=== PATIENT | male | born 1955 | race Caucasian/White ===

== ENCOUNTER 2017-03-11 04:53 | Inpatient (IN) | payer OTHER ==
--- NOTE | ~2017-03-11 | HP ---
History And Physical [address] [id number] [facility] [place]. [address] NAME: NIYAH ANDERSON : 53 STATUS : ADM Star PAT#: [id number] AGE: 62 ADM/REG DATE : 03/11/17 MR#: [id number] REPORT SERV DATE: 03/11/17 DICTATED BY: JOSEPH ESPINOZA III DATE: 03/11/17 REPORT STATUS : Draft TRANSCRIBED BY: MODL DATE: 03/11/17 DATE OF ADMISSION: 03/11/2017 HISTORY OF PRESENT ILLNESS: The patient is a 62-year-old white male, well known to me from a very complicated history that began on 10/11/2014 when he was transferred to [facility] from a [facility] with a very complicated history of ileostomy and open wound that was involved with necrotizing fasciitis. He had extensive surgery in [place], 09/24/2014, and was told that he had a small-bowel obstruction and this was operated on and corrected. Apparently, there was anastomotic leak or bile leak according to the patient's history that was recognized 10 days after the patient's surgery and he was taken back to surgery, re-explored, and washed out, and required an ileostomy and open wound management. The patient's wound had opened widely for a few days. The patient was sent home to have a wound VAC instituted on a diet to be followed up. He was transferred here on his own request because of increasing abdominal pain, fever, chills, cramping, and continued ileostomy output even though he was not able to eat. The patient has small sections of the bowel removed at time the ileostomy was placed according to the history that was described as a temporary ostomy. He has had a poor appetite prior to that admission with extensive wound dehiscence, much drainage, and was in distress. PAST MEDICAL HISTORY: COPD, coronary artery disease followed by Dr. Gonzales, hypertension, history of diabetes, some type of stroke event in the remote past, gastroesophageal reflux disease, peripheral artery disease with stent placements in the past, and lumbar stenosis. He had a cholecystectomy and appendectomy many years ago and the bowel resection at the most 08/2014 timeframe. The patient is allergic to penicillin and potassium chloride by mouth. He was on Plavix as well as a number of other medications at that time. The assessment at that time was that he had wound dehiscence with healing by secondary intention plan, but with gas bubbles and purulent fluid in that area and reported fluid in the area of the dome of the liver with gas bubbles. It was clear that he must have some type of intraperitoneal process going on. The patient was admitted, stabilized at that time, and underwent a number of operations during the process of his admission. The patient underwent a number of operations, which will be listed as above. On 10/16, the patient underwent a debridement and clean up of tissues around the area of the open wound and ileostomy. On 10/31, the patient underwent a debridement of the right lower abdominal quadrant with revision of the right lower quadrant ileostomy and skin approximation with wound VAC applied. On 12/19/2014, the patient again went to the operating room for debridement, Z-Y plasties, and freshening up around the area of the ileostomy with the abdominoplasty and debridement carried out under general anesthetic. On 01/29/2015, the patient was again taken to the operating room, where he had debridement of the abdominal wall with development of flaps, abdominoplasty, and revision of the colostomy, skin level ileostomy recreation. The patient was after that time felt to be so complicated that he needed more tertiary care from a physician who was doing specific tunnel procedures to correct these processes at [facility]. He was transferred to Dr. Neptali Ellis's service at [place] after he had consulted at this hospital and was [facility] [address] [id number] NAME: NIYAH ANDERSON : 53 STATUS : ADM Star PAT#: [id number] AGE: 62 ADM/REG DATE : 03/11/17 MR#: [id number] REPORT SERV DATE: 03/11/17 DICTATED BY: JOSEPH ESPINOZA III DATE: 03/11/17 REPORT STATUS : Draft TRANSCRIBED BY: JAIDA DATE: 03/11/17 managed at that hospital with advanced treatment and eventual reconnection of his alimentary canal. Since that time, the patient has been back in the hospital very infrequently with his last admission being 11/17/2014 primarily for acute kidney injury, secondary dehydration, hyperkalemia, and transaminase concern, in large concern for elevation and worsening of abdominal pain and leukocytosis at that time. The patient was seen by Dr. Pedraza in my absence at that time and apparently resolved pretty nicely from the process without surgical intervention. He has been followed in the wound clinic after that for his continued wound management, which has completely resolved at this time. The patient has otherwise been doing quite nicely at home on a diet, very little pain, and no problems with tolerating diet. He has been having mostly liquid, but stable bowel movement activities at home. He recently in the last two days discovered that he was having abdominal pain more in the right lower quadrant than elsewhere and some nausea and vomiting with paucity of bowel movements. He came to the emergency room early this morning and was evaluated, CT scan showing small-bowel obstruction in the right lower quadrant with a partial small-bowel obstruction initially read and high-grade obstruction read by Dr. Sandoval in this hospital over-reading the initial interpretation. CT scans were reviewed and show considerable activity in the right lower quadrant, which is where the patient's most activities have been with surgery, reconnection, and wound issues. The patient now has NG tube with fairly high output and is feeling a little better on a SAP BW ARCHITECT pump. He is alert and oriented and a fairly good historian. FAMILY HISTORY: Noncontributory. SOCIAL HISTORY: He has been a smoker in the past, but now only uses an electric cigarette, which he says he does not put any nicotine in. He denies significant alcohol intake. He is on no pain medicines chronically at home. REVIEW OF SYSTEMS: Stable weight. Good function overall. PHYSICAL EXAMINATION: GENERAL: The patient is a moderately obese, well-developed white male, in no acute distress. NG tube in place with significant output. HEENT: Showed no lateralization. NECK: Supple without bruit. CHEST: Clear anterior to posterior. HEART: Regular rate and rhythm without thrill, bruit, or murmur. ABDOMEN: Soft with multiple scars in the lower abdomen especially in the right lower quadrant with significant tenderness in the right lower quadrant with no true rebound. He had active bowel sounds and no audible bruits. EXTREMITIES: Grossly anatomic and relatively normal. RECTAL: Exam showed no stool obstruction and his prostate was 2+, smooth, enlarged. IMPRESSION: The patient has a small-bowel obstruction probably related to adhesions. He also has a history of significant hypertension, which has required multiple medications. He History And Physical [id number] [facility] [place]. [address] NAME: NIYAH ANDERSON : 53 STATUS : ADM Star PAT#: [id number] AGE: 62 ADM/REG DATE : 03/11/17 MR#: [id number] REPORT SERV DATE: 03/11/17 DICTATED BY: JOSEPH ESPINOZA III DATE: 03/11/17 REPORT STATUS : Draft TRANSCRIBED BY: JAIDA DATE: 03/11/[address] 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 Gonzales, which is little over a year ago. At that time, the patient was noted to have a fairly significant coronary findings of some narrowing, but no crucial narrowing and no angioplasty or stenting was done at that time. The report is reviewed. The patient's diabetes has not been problematic and he says his hemoglobin A1cs have been normal the last few determinations by his PCP, whom he has not really seen recently because he has been doing so well. Impression, the patient has small- bowel obstruction secondary to adhesions and treatment will be GI rest, NG decompression, Gastrografin enema, decompression with enemas in preparation, and possible surgery if he does not resolve. I have explained to the patient and his , surgery on him will be extremely tenuous due to his past history, fraught with potential complications, and high risk for morbidity and mortality. ELIZABETH/JAIDA Joseph Espinoza III, M.D. / [id number] CC: Joseph Espinoza III, M.D.
--- NOTE | ~2017-03-11 | OP ---
Record Of Operation [facility] [address] [place]. 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 He had an ileostomy performed that was very problematic and eventually had a closure and reanastomosis for alimentary canal continuity a year and a half or so ago. The patient's abdomen had been treated with multiple treatments, skin flaps, and wound VAC therapy for very complex wound situation over the course of his recovery. Anticipation of extensive adhesion and fusion of the bowel to the surrounding tissues is anticipated. The patient's surgery was preceded by a time-out with discussion of the patient's allergies as well as his planned procedure and instrumentation and materials needed for his operation. He is allergic to penicillin and oral potassium chloride. He had been recommended to have this surgery a day prior, but refused, but was at last willing to have surgery today due to his progressive pain. PREOPERATIVE DIAGNOSIS: Complete small bowel obstruction with progression and failure to respond to conservative decompression and GI rest. POSTOPERATIVE DIAGNOSIS: Complete small bowel obstruction with progression and failure to respond to conservative decompression and GI rest with dilation of the bowel and a "frozen abdomen" with no real discernible abdominal cavity due to extensive adhesions and fusion of the surrounding tissues. PROCEDURE: The procedure on the patient is an exploratory laparotomy with extensive lysis of adhesions and adhesion enterolysis requiring four and a half to five hours of dissection time to identify the area of question. The patient had the resection of an obstructed area of small bowel that included the obvious twisted, contracted obstruction point with dilated bowel approximately 35 to 40 cm involved. This was followed by a hand-sewn end-to-end jejunoileostomy reconnection for alimentary canal continuity. SURGEON: Joseph Espinoza M.D. BOOKING OFFICER: Vaishnavi Prater. ANESTHESIA: General endotracheal anesthesia with placement of subclavian line and at the end of the case, an A-line was also placed. PATHOLOGIC FINDINGS: Dense adhesions requiring four to five hours of dissection time with adhesion enterolysis and dissection of the bowel involved primarily in the right lower quadrant and right midabdomen. The area was found where there was complete obstruction at the level near the junction of the distal jejunum and proximal ileum presumably, but very difficult to say for sure due to the complexity. We did know from refluxing the small intestine two days prior, there was a fair amount of normal small bowel on the reflux through the ileocecal valve, which was incompetent and that bowel was not obstructed for at least 60 to 70 cm. Also noted was dilated and necrotic bowel at the level of the Record Of Operation [address] [address] NAME: NIYAH ANDERSON : 53 STATUS : ADM Star PAT#: [id number] AGE: 62 ADM/REG DATE : 03/11/17 MR#: [id number] REPORT SERV DATE: 03/13/17 DICTATED BY: JOSEPH ESPINOZA III DATE: 03/13/17 REPORT STATUS : Draft TRANSCRIBED BY: JAIDA DATE: 03/13/17 obstruction and proximal to it. The patient had a "frozen abdomen" due to extensive adhesions making an actual abdominal cavity nonexistent on the right side of the abdomen. There was noted to have fusion of the small bowel to the abdominal wall in multiple places causing several enterotomies, which were resected and the bowel resection necessary for the repair. There was minimal contamination despite this process, but clearly, the patient had obstruction with food materials that were present including recognizable corn and lettuce- type material. The case was assisted by Evicel, which was placed to the anastomosis, which is fibrin glue used to help seal the area of the anastomosis. The abdomen was irrigated with 2 L of Clorpactin solution and a 19-Latvian Elijah-Novoa Saleem drain was placed in the right midabdomen above the transverse incision and sutured in place with 2-0 Prolene draining the area of the pelvis and especially the area around our anastomosis. The incision was a right midabdominal incision, which crossed the midline. ESTIMATED BLOOD LOSS: 200 mL. CRYSTALLOID GIVEN: 3000 mL supplemented by some albumin. CONDITION: Postoperative condition the patient is fair. DESCRIPTION OF PROCEDURE: The procedure went as follows: Time-out was called as in full agreement with the patient and the operating room staff was obtained. The procedure proceeded with the appropriate prepping and draping using Ioban and draping widely. The abdomen was entered by transverse incision above previous transverse incision, which was anticipated to have more potential for fusion and complications. This incision was made hoping that there would be a lesser chance of bowel fusion at this level since it was clearly 8 cm above the previous scar, but we had to make the incision in the area reasonably close to the obstructing site in the right lower quadrant. Upon entering the abdomen, a small incision was made and careful dissection made with a 15 knife blade. The fascia was divided and tissue immediately below the fascia, which should have been peritoneum was indeed peritoneum fused with small bowel. An enterotomy was immediately noted and due to the frozen abdominal situation, the patient's contamination was nil except to the subcu tissue. The enterotomy was controlled, suctioned, and freed up enough to close it with silk sutures for a temporary closure and for prevention of contamination. Long drawn out process of painstaking dissection was achieved using blunt sharp dissection as well as sharp knife dissection with traction and countertraction, and small bites and segments to try and free up the bowel. The area was essentially without a true cavity. We identified the small bowel where the enterotomy initially was made circumferentially and started dissecting distal and proximal to the enterotomy closure site. The process was then continued back and forth, and several other enterotomies were noted during the dissection, which were immediately controlled with [place] clamps and closed with 3-0 Vicryl locking sutures to control contamination potential. The dissection continued on and on until we were able to identify a large piece of small bowel that was dilated 5 to 6 cm and was necrotic, and went down to an area right at the pelvis in the right lower quadrant where there was scar tissue and adhesive process that had a very tiny strictured site where the tissue was essentially solid and the small bowel contents above it were also with identifiable food content. Dissection was carried on up and down over a period of several hours as described and eventually we were able to describe some small bowel in the left midabdomen that we traced Record Of Operation [address] [place]. [address] NAME: NIYAH ANDERSON : 53 STATUS : ADM Star PAT#: [id number] AGE: 62 ADM/REG DATE : 03/11/17 MR#: [id number] REPORT SERV DATE: 03/13/17 DICTATED BY: JOSEPH ESPINOZA III DATE: 03/13/17 REPORT STATUS : Draft TRANSCRIBED BY: MODL DATE: 03/13/17 back where the bowel was less friable and not fused to the surrounding tissues. The bowel was adhesed quite extensively, but not such that it was fused to the surrounding tissues. This bowel was freed up, and the section of the bowel where the dilation had caused necrosis and extreme friability of the bowel was transected proximally with a JOAQUIN 75 and after this was done, the mesentery to the small bowel was controlled with the LigaSure. The dissection was then carried all the way down to the pelvic brim on the right side, where the bowel was fused in an extremely tight strictured area, and the tissue right beyond the stricture was extremely tightly adhered to the pelvic brim. This tissue was freed up as much as possible and was quite cyanotic from the level of the pelvic brim back to the site, where the bowel had been transected. The bowel was opened after it had been removed to assess whether there were any other abnormalities therein. The specimen was then submitted to pathology for permanent analysis. The bowel was divided at the pelvic brim level just distal to the stricture controlling it with a right angle Sherry clamp. After this was done, the Sherry clamp was opened and the bowel lumen inspected. The bowel was fairly small in caliber at this level, presumably due to the chronic obstruction above it. The tissues were then assessed and tissue at this level felt to be viable and appropriate for an anastomosis. The tissue of the more proximal small bowel where it had been transected was still very tightly adhered in the left upper quadrant and in the left lower quadrant with dense adhesions. These adhesions were taken down over a period of another 30 minutes to clear up the bowel and mobilize it where it could be brought to the right lower quadrant for anastomotic procedures. After this had been done, some of the mesentery to that bowel had to be mobilized to allow it to come safely and tension free to the level of the right lower quadrant pelvic brim. After this was done, back wall sutures of 3-0 silk were then placed under direct visualization and tied down after their placement of all these silk sutures. A Doyen clamp and was then placed on the proximal end of the bowel and the ends suctioned out to remove any potential contamination in this dilated bowel with continued enteral contents from the obstruction. After this Doyen clamp had been applied, most of the contents of the bowel was then suctioned with a suction device using abdominal wall suction removing as much of the material as possible, but a lot of the solid material had to be removed by ring forceps. After this had been done, draping out to protect the abdominal cavity as such it was from further contamination, this was accomplished cleaning out the bowel. The bowel was then irrigated with saline and suctioned out with no contamination at this process. The sutures that had been placed in the back wall of the distal end of the anastomosis were then placed in the back wall for the proximal bowel and after they had all been placed under direct visualization, they were tied down with good approximation. After this was done, interrupted 3-0 Vicryl sutures were then placed as full thickness closures suture on the back wall. This was done at very close intervals with a tension-free approximation. The back wall having been completed, the anterior wall was then prepared for closure. The distal bowel was extremely thin, but quite viable with good bleeding. It was so small at this level that an anterior incision had to be made to help correct the disparity in the two lumen sizes. The JOAQUIN closure was opened prior to the back wall full-thickness layer of Vicryl sutures were performed. After this was done, the anterior layer was then closed with interrupted Vicryl sutures 3-0 size. These were all placed under direct visualization and tied down after their placement. The anterior surface was then closed in a second layer with 3-0 Lembert sutures carefully pulling the mucosal tissues over the anastomotic suture line with a tension-free closure at this level. After this was done, a good anastomotic Record Of Operation [address] [address] NAME: NIYAH ANDERSON : 53 STATUS : ADM Star PAT#: [id number] AGE: 62 ADM/REG DATE : 03/11/17 MR#: [id number] REPORT SERV DATE: 03/13/17 DICTATED BY: JOSEPH ESPINOZA III DATE: 03/13/17 REPORT STATUS : Draft TRANSCRIBED BY: JAIDA DATE: 03/13/17 opening of approximately one fingerbreadth or 2 cm was palpable. Evicel was then placed around this suture line. This anastomosis was fixed at the pelvic brim level and was not a mobile portion of the bowel. After this was done, all areas were irrigated with copious amounts of normal saline followed by Clorpactin solution. A protractor was placed in the abdominal wall to assist with the control of pouring in 2 L of Clorpactin solution. The tissues were then gently agitated to try and move the Clorpactin solution around the relatively small cavitary area that was able to be made secondary to the frozen abdomen complex issue. After this was done, the Clorpactin was all suctioned and a drain placed in the right gutter using a 19-Latvian Saleem drain, which was run out a separate stab wound superior to the transverse incision and sutured in with 2-0 Prolene. After this was done, all areas were reinspected. Good control of bleeding was noted and the abdominal wall inspected and prepared for closure. The bowel had been freed up along the edges of the abdominal wall well enough to perform a closure, but prior to closing, we had to free up a little bit more of the abdominal wall doing adhesion enterolysis along the way to make an opening so we could do a good tight closure. The abdomen was closed with #1 PDS as a loop suture and placed at both ends of the incision with full-thickness close interval small bite technique. After this was done, all sutures were placed up with good tension and the two sutures tied together without difficulty. The area was then irrigated in the subcutaneous tissue with Clorpactin solution. Also 120 mL of Clorpactin solution were injected through the Elijah-Novoa drain to further irrigate after the closure. The skin was left open, but the suture at the middle of the incision where the two PDS looped sutures had been tied together were buried with 3-0 Vicryl sutures using 3 or 4 of these sutures to pull the subcutaneous tissue over the knot and tails of the knot. The subcutaneous tissue was then packed with the black sponge material and draping material applied and a wound VAC applied with bridging technique. The wound VAC was set at 125 mmHg continuous mode. Drain sponge was applied using an antibiotic-impregnated sponge around the drain, and the procedure concluded. The patient tolerated the procedure reasonably well, but was kept intubated for a night and registered nurse float pool asked to assist in the patient's management. The patient's prognosis is somewhat guarded due to the extreme adhesive process and tissue, which is extremely friable throughout the abdomen, but especially the two ends of the bowel where they were anastomosed. Friability hopefully is related to the obstructing process of the distal portion and proximally due to the distention from the obstruction causing the bowel graham to be stretched. There was good viability at the two ends of the anastomosis during and after the anastomotic process had been completed. The patient will be sent to the intensive care unit, NG tube in place, drain in place, wound VAC in place, and follow lab with antibiotics using Levaquin and vancomycin as well as Flagyl. This will be continued for least five days. RB/JAIDA Record Of [address] [address] NAME: NIYAH ANDERSON : 53 STATUS : ADM Star PAT#: [id number] AGE: 62 ADM/REG DATE : 03/11/17 MR#: [id number] REPORT SERV DATE: 03/13/17 DICTATED BY: JOSEPH ESPINOZA III DATE: 03/13/17 REPORT STATUS : Draft TRANSCRIBED BY: JAIDA DATE: 03/13/17 Joseph Espinoza III, M.D. / [id number] CC: Joseph Espinoza III, M.D.
--- NOTE | ~2017-03-11 | OP ---
Record Of Operation [facility] [address] [place]. [address] NAME: NIYAH ANDERSON : 53 STATUS : ADM IN PAT#: [id number] AGE: 62 ADM/REG DATE : 03/11/17 MR#: [id number] REPORT SERV DATE: 03/15/17 DICTATED BY: JOSEPH ESPINOZA III DATE: 03/14/17 REPORT STATUS : Draft TRANSCRIBED BY: MODL DATE: 03/14/17 DATE OF PROCEDURE: 03/14/2017 PREOPERATIVE INFORMATION AND DIAGNOSIS: The patient was explored yesterday for a severe bowel obstruction that was extremely advanced at the time of its discovery with many adhesions and fibrotic changes. The patient has actually no true abdominal cavity on the right side especially and there is just an inflammatory ball of bowel that is apparently non obstructed, but so involved in an adhesive inflammatory response that it is impossible to discern the bowel in 90% of the areas. A few areas of bowel are identifiable in this ball of intestine, but the level of which the bowel is, is impossible to discern. The patient has had an anastomosis late yesterday, which we took out a segment of bowel that was obstructed and mobilized, what appeared to be, the jejunum and proximal bowel that led up to the ligament of Treitz more on the left side than the right side and this was dissected out and mobilized enough to do an anastomosis to the end of the strictured portion of the bowel, which just distally was able to be identified and anastomosed. Apparently, the patient developed some type of ischemic process in the anterior aspect of the anastomosis and was leaking bile from the drain which necessitated a re-exploration. The patient has an extremely complex history, which is outlined in the history and physical. PREOPERATIVE DIAGNOSIS: Failure of the previous anastomosis with leak of succus entericus. POSTOPERATIVE DIAGNOSIS: Failure of the previous anastomosis with leak of succus entericus. FINDING: Leak from the anterior surface of the previous jejunoileal anastomosis secondary to ischemia. This was followed by a re-exploration of the abdomen with decompression of succus entericus from the leak from the anastomosis and identification of the site. Further lysis of adhesions were carried out and on-table fluorescein angiography was performed to confirm the ischemia around the anastomotic area and further confirm viability of bowel a few centimeters back on the same ileal piece of bowel that was fused to the urinary bladder and the intestinal bowel mass that was described earlier. After this was done, the patient had a Wood's lamp fluorescein evaluation of the tissue more distally and this was viable with good fluorescein flow noted on the Wood's lamp at the evaluation. Prior to that, the anastomosis area showed virtually no flow on the anterior aspect of the anastomotic area. The fluorescein angiography was followed by an on-table Gastrografin C-arm enteroclysis for evaluation of the level of the small bowel involved and this was done from the level of the ileum all the way to the cecum or colon in the right side of the abdomen. This was followed by reanastomosis of the jejunoileal anastomotic area with free anastomotic confirmation of good vascular flow by Wood's lamp fluorescein evaluation. SURGEON: Joseph Espinoza M.D., FACS. DISTRICT SUPERVISOR: Elda Espinoza RN [facility] Record Of Operation [address] [address] NAME: NIYAH ANDERSON : 53 STATUS : ADM IN [facility]#: [id number] AGE: 62 ADM/REG DATE : 03/11/17 MR#: [id number] REPORT SERV DATE: 03/15/17 DICTATED BY: JOSEPH ESPINOZA III DATE: 03/14/17 REPORT STATUS : Draft TRANSCRIBED BY: MODL DATE: 03/14/17 SPECIMEN REMOVED: Anastomotic tissue which was ischemic. ESTIMATED BLOOD LOSS: 50 mL. COMPLICATION: Anastomotic leak secondary to ischemia. ANESTHESIA: General with endotracheal tube. The ET tube already in place from yesterday's surgery since the patient has not been extubated. DRAIN USED: A 19-Guine[place] Saleem drain. Wound VAC was placed to the subcutaneous tissue of the subcu and skin. Silver sponge was utilized. PROCEDURE IN DETAIL: The patient was prepped and draped in routine fashion under adequate general anesthesia. The area of previous right transverse incision was opened in its entirety removing the previously placed looped #1 PDS sutures. After this had been opened, the abdomen was noted to have a lot of succus entericus therein, mostly bile stain with no food or solid component, only the bile stained fluid was noted. The area of the bile leak was controlled with a [place] clamp temporarily controlling the area of leak. After this was done, the area was re-explored and no other sites for potential leak found. The other bowel proximally looked viable as did the proximal jejunal tissues even near the anastomosis. The tissue on the anterior surface of the distal limb of the anastomosis was cyanotic at the level of the perforation. After this had been decided, fluorescein was injected as 1 vial and Wood's lamp used after four minutes of circulation time. The fluorescein was seen in the 1 cm rim over the anterior surface of the anastomosis region, but good flow was even seen on the posterior aspect. After this was established, the anastomosis was taken down in its entirety and the entire distal end of the ileum was amputated using cautery to remove the ischemic issue back to good viable pink bleeding tissue. After this had been ascertained, we tried to establish that there was no obstruction distally to the anastomosis that would have caused it to fail further. A #36 bougie esophageal dilator attempted to be passed through the distal end, but we were unable to really get it through more than 8 to 10 cm. Using both hands of the dilator it would not progress in the bowel. After this had been ascertained, a Arrieta catheter with a 10 mL bulb was placed in the bowel. The bulb blown up and enteroclysis carried out with Gastrografin using approximately 200 mL a Gastrografin which allowed us to establish that this was indeed the proximal bowel where the anastomosis was being performed and that it communicated all the way to the colon on the right side. There was no evidence of any narrowing or obstruction that were not anatomic. After this had been done, the Arrieta catheter was removed and the amputated the ends of the distal port of the anastomosis were assuredly removed in adequate amount to have good vascularity to the area for reanastomosis. 2-0 silk sutures were then used to place the back wall with seromuscular Lembert sutures. After this was done, interrupted sutures of 2-0 Vicryl were placed at close intervals as a full-thickness closure. After this was completed on the back wall a turn was accomplished Record Of Operation [place] [id number] [place]. [address] NAME: NIYAH ANDERSON : 53 STATUS : ADM IN [facility]#: [id number] AGE: 62 ADM/REG DATE : 03/11/17 MR#: [id number] REPORT SERV DATE: 05/31/17 DICTATED BY: JOSEPH ESPINOZA III DATE: 03/14/17 REPORT STATUS : Draft TRANSCRIBED BY: MODL DATE: 03/14/17 using interrupted 2-0 Vicryl sutures, which were all placed under direct visualization, tied down after placement for a good anastomotic approximation. Lembert sutures of 2-0 silk were then utilized to close the anastomosis imbricating the Vicryl layer. Good opening was palpable and the viability re-evaluated with the Wood's lamp and fluorescein, which was still in the circulation. The wall of the bowel at this level appeared to be extremely viable with good flow and good fluorescein reaction to the entire anastomosis. After this was established, the abdomen was irrigated with copious amounts of normal saline followed by Clorpactin solution. The drain which was still in place was left in place in the right gutter. The abdomen being closed after correct sponge, lap count, instrument count, and needle count. The abdomen was closed with looped #1 PDS on the full-thickness fascial closure which was very difficult to the previously placed mesh and extreme scar reaction in the abdomen from many previous surgeries. After this was done, the abdomen was effectively closed and the subcutaneous tissue then drained with a wound VAC with silver sponge and 125 mmHg constant suction application utilized. After this was done, the drain was secured and a bowel patch placed therein and the drain bulb using the large container was applied. The estimated blood loss 50 mL. The patient tolerated the procedure well. The procedure on the patient was reexploration of the abdomen with decompression of succus entericus, evacuation of succus entericus with identification of an anastomotic leak. This was followed by a lysis of adhesions and amputation of previous anastomosis preceded by a two fluorescein Wood's lamp angiography and followed by a post anastomotic fluorescein Wood's lamp angiography. Also, utilized was an on-table Gastrografin C-arm enteroclysis of the small bowel evaluation to confirm that this was a proximal small bowel with anastomosis that occurred and the bowel was opened all way to the cecum/colon on this evaluation. A reanastomosis with a jejunoileal anastomosis was performed. Anesthesia was general endotracheal tube and the patient was reasonably stable. The 19-Guine[place] Saleem drain was left in position. ELIZABETH/JAIDA Joseph Espinoza III, M.D. / [id number] CC: Joseph Espinoza III, M.D.
--- NOTE | ~2017-03-11 | DS ---
Discharge Summary [place] [id number] [place]. [address] NAME: NIYAH ANDERSON : 53 STATUS : ADM IN [facility]#: [id number] AGE: 62 ADM/REG DATE : 03/11/17 MR#: [id number] REPORT SERV DATE: 03/15/17 DICTATED BY: CHELA TUTTLE DATE: 03/15/17 REPORT STATUS : Draft TRANSCRIBED BY: MODL DATE: 03/15/17 ADMISSION DATE: 03/11/2017 DISCHARGE DATE: 03/15/2017 DATE OF : 03/15/2017 at 1102 hours. This is a 62-year-old patient that Dr. Espinoza admitted with small-bowel obstruction who failed conservative therapy and required surgical intervention. The patient was taken to the operating room on 03/13/2017 and had to go back to the operating room on 03/14/2017 after he developed a bile leak. The patient has a known history of cardiac disease and is followed by Dr. Gonzales. The patient was doing relatively well on the morning of 03/15/2017 and actually was close to possible extubation when at 1041 hours Jordin Styles was called. The patient had just had a bowel movement and went into PEA arrest. CPR was initiated immediately. ACLS protocol was followed, and the patient received epinephrine to start 1 amp of calcium. He was then noted to be in VFib and remained in intermittent VFib throughout the code. He was shocked seven times throughout the code, received a total of 300 mg of amiodarone, 100 mg of IV lidocaine, 8 amps of epinephrine, 1 g of magnesium, and 1 amp of calcium. He also received a fluid bolus. The patient received good quality CPR. Quick-look echocardiogram at several points during the code showed very little contractility and toward the end of the code, no contractility with what was recognized as smoke or recirculating blood in the right ventricle which did not seem to be enlarged. No pericardial effusion was noted. ABG during the code which was venous showed a pH of 7.2, pCO2 of 52, pO2 of 18, bicarb of 22. His initial lab work prior to the code showed a procalcitonin of 1.0. Sodium 143, potassium of 4.1, chloride of 104, bicarb of 30, BUN 7, creatinine 0.88. Magnesium was 2.1. Lactic acid level was 2.8 prior to the code on the morning lab work. This was down from 3.8 on the 03/14/2017. The patient did have an initial complaint of chest pain prior to coding. Despite our best efforts, the patient did not survive the code. The code was initiated at 10:41 a.m. and was called at 11:02 a.m. after there was no response to multiple shocks, epinephrine, lidocaine, and amiodarone, as well as no evidence of contractility on the bedside quick look echo. We then also spent time updating the family and we had a discussion both with the family and Dr. Espinoza. Time was then taken to review the chart and various lab work. So, total time spent between the code and review of the lab work updating the family and discussion with Dr. Whitaker was 51 minutes of critical care time. DICTATED BY: Chela Tuttle M.D. /JAIDA Chela Tuttle M.D. / [id number] Discharge Summary [address] [address] NAME: NIYAH ANDERSON : 53 STATUS : ADM IN [facility]#: [id number] AGE: 62 ADM/REG DATE : 03/11/17 MR#: [id number] REPORT SERV DATE: 03/15/17 DICTATED BY: CHELA TUTTLE DATE: 03/15/17 REPORT STATUS : Draft TRANSCRIBED BY: JAIDA DATE: 03/15/17 CC: Ernesto Espinoza III, M.D. UNKNOWN
--- NOTE | ~2017-03-11 | CN ---
Consultation Report [facility] [address] [facility] [place]. [address] NAME: NIYAH VAN : 53 STATUS : ADM IN [facility]#: [id number] AGE: 62 ADM/REG DATE : 03/11/17 MR#: [id number] REPORT SERV DATE: 03/14/17 DICTATED BY: VAZQUEZ VICTOR DATE: 03/14/17 REPORT STATUS : Draft TRANSCRIBED BY: MODRachelle DATE: 03/14/17 DATE OF CONSULTATION: 03/13/2017 Thank you for the opportunity to consult on this patient. Consultation was performed on 03/13/2017. REASON FOR CONSULTATION: Postoperative care in the ICU with ventilator management. HISTORY OF PRESENT ILLNESS: Mr. Van is an unfortunate 62-year-old man with a very complex extensive medical history. This includes amongst other problems recurrent small bowel obstruction, multiple surgeries, leak, intraabdominal infections, necrotic ileostomy, enterocutaneous fistulae, multiple intraabdominal abscesses, sepsis, effusions, had been on TPN for a while with long wound care, diabetes, esophagitis, and COPD, who came in this time for small bowel obstruction and had complete small bowel obstruction and progression and failure to respond to conservative decompression. He underwent lysis of adhesions in addition to enterolysis requiring 4.5 to 5 hours of dissection time. Because of the extent of the surgery and his complicated history, the patient remained on the ventilator post surgery. He is actually stable. We have checked his imaging postprocedure and those show adequate placement. PAST MEDICAL HISTORY: Leading up to us is as noted above, significant for quite extensive disease with previous necrotizing fasciitis, complications of small bowel obstruction, abdominal surgery, as well as COPD and peripheral vascular disease. SOCIAL HISTORY: Significant for prior tobacco abuse with him having quit in 2011. Occasional alcohol use. REVIEW OF SYSTEMS: Review of 10 systems could not be obtained since the patient is intubated on the ventilator. PHYSICAL EXAMINATION: GENERAL: He is chronically ill appearing. HEENT: Normocephalic and atraumatic. NECK: Supple. No lymphadenopathy. No JVD. CHEST: Symmetric with good expansion bilaterally. LUNGS: Have distant but clear breath sounds. CARDIOVASCULAR: He has S1 and S2, which are regular rate and rhythm. ABDOMEN: Benign, though with diminished bowel sounds. EXTREMITIES: His has no edema, no clubbing, no cyanosis. ASSESSMENT AND PLAN: Respiratory failure. He has postoperative respiratory failure but seems to be stable on the ventilator. ET tube, orogastric tube, and central line are in good position. The patient will remain on supportive care tonight, and we will continue to monitor him with you in the ICU. Consultation Report [facility] [address] [place] [address] NAME: NIYAH VAN : 53 STATUS : ADM IN [facility]#: [id number] AGE: 62 ADM/REG DATE : 03/11/17 MR#: [id number] REPORT SERV DATE: 03/14/17 DICTATED BY: VAZQUEZ VICTOR DATE: 03/14/17 REPORT STATUS : Draft TRANSCRIBED BY: JAIDA DATE: 03/14/17 Please do not hesitate to contact me if I could be of any further assistance. HUGO/JAIDA Vazquez Victor M.D. / [id number] CC: Ernesto Espinoza III, M.D.
[2017-03-11 04:04] LABS: BASOPHILS 0.2 %; BASOPHILS ABSOLUTE 0.02 10/3/uL (0.0-0.16); EOSINOPHILS 1.6 %; EOSINOPHILS ABSOLUTE 0.17 10/3/uL (0.0-0.53); ER CBC TAT 0 Hrs 03 Mins; HEMATOCRIT 48.1 % (40.0-51.0); HEMOGLOBIN 16.8 g/dL (13.6-17.8); IMMATURE GRANULOCYTES 0.3 %; IMMATURE GRANULOCYTES ABSOLUTE 0.03 10/3/uL (0.0-0.11); MEAN CORPUS HGB CONC 34.9 g/dL (32.0-36.0); MEAN CORPUSCULAR HEMOGLOB 29.7 pg (26.0-34.0); MEAN CORPUSCULAR VOLUME 85.1 fL (80-100); MEAN PLATELET VOLUME 10.5 fL (9.2-13.0); MONOCYTES 5.8 %; MONOCYTES ABSOLUTE 0.63 10/3/uL (0.21-1.20); NEUTROPHILS 81.1 %; NEUTROPHILS ABSOLUTE 8.89 10/3/uL (2.02-8.40); PLATELET COUNT 172 10/3/uL (150-400); RED CELL COUNT 5.65 10/6/uL (4.7-6.1); WHITE BLOOD CELLS 10.9 10/3/uL (4.5-10.5)
[2017-03-11 04:05] LABS: MANUAL DIFF NO %
[2017-03-11 04:24] LABS: A/G RATIO 1.1 (0.7-1.9); ALBUMIN 3.8 G/DL (3.5-5.0); CALCIUM, SERUM 9.8 MG/DL (8.5-10.4); CHLORIDE, SERUM 99 MMOL/L (96-112); CO2 (CARBON DIOXIDE) 29 MMOL/L (24-34); CREATININE 0.72 MG/DL (0.70-1.30); GFR AFRICAN AMERICAN 115 ML/MIN (>=60); GFR NON AFRICAN AMERICAN 99 ML/MIN (>=60); GLOBULIN 3.6 G/DL (2.5-4.1); GLUCOSE, SERUM 142 MG/DL (60-99); POTASSIUM, SERUM 3.5 MMOL/L (3.5-5.3); SGPT(ALT) 36 U/L (5-65); SODIUM, SERUM 137 MMOL/L (135-148); TOTAL BILIRUBIN 0.6 MG/DL (0-1.2); TOTAL PROTEIN 7.4 G/DL (6.0-8.5)
[2017-03-11 04:25] LABS: ALKALINE PHOSPHATASE 64 U/L (45-117); BUN (BLOOD UREA NITROGEN) 8 MG/DL (6-23)
[2017-03-11 04:26] LABS: SGOT(AST) 23 U/L (5-40)
[~2017-03-11 04:53] MED LIST: ASA5GR PO; ASAB PO; CREON12000 UNT PO; DULERA 200 MCG/13 GM INH; DURA100 TOP; DURA25 TOP; FESO4 PO; FLORASTOR250 MG PO; FOLIC PO; GLUCOPHAGE1000 MG; GLUCPH PO; IMDUR30 PO; IMDUR60 PO; KLONO1 PO; KLONO5 PO; L40 PO; LACTATED RING1000 ML IV; LACTINEXT PO; LEVAQUIN5T PO; LEVAQUIN750 MG PO; LEVEMFLXPN SC; LEVEMIR SC; LIPITOR80 MG PO; LISINOPRIL40 MG PO; LOP50 PO; MEGACEUDL PO; MONOKET20 PO; MSCONT15 PO; NEUR100 PO; NITROSTAT0.4 MG SL; NORV5 PO; PAX20 PO; PCET PO; PERCOCET1 TA4 PO; PLAVIX PO; PR25 PO; PRILO PO; PRIN20 PO; PRIN5 PO; PROTONIX PO; REQUIP5 PO; SPIRIVA INH; SUCR PO; T PO; TOPXL50 PO; TRANSSCOP TOP; TYLENOL PM PO; VITAMIN D31000 UNIT PO; VITC500 PO; X5 PO; ZESTRIL10 MG PO; ZESTRIL20 MG PO; ZOFRANODT8 PO; [UNRECOGNIZED DRUG - OTHER] PO
[2017-03-11] MEDS ORDERED: PRIN20 PO (05:53)
[2017-03-11] MEDS ORDERED: KLONO1 PO (05:54)
[2017-03-11] MEDS ORDERED: TOPXL100 PO (05:54)
[2017-03-11] MEDS ORDERED: PLAVIX PO (05:55)
[2017-03-11] MEDS ORDERED: IMDUR60 PO (05:55)
[2017-03-11] MEDS ORDERED: ADALAT CC30 MG PO (05:56)
[2017-03-11] MEDS ORDERED: [UNRECOGNIZED DRUG - OTHER] (05:56)
[2017-03-11] MEDS ORDERED: PAX20 PO (05:56)
[2017-03-11] MEDS ORDERED: ISOSORBIDE MONONITRATE (05:57)
[2017-03-12 04:51] LABS: BASOPHILS 0.2 %; BASOPHILS ABSOLUTE 0.02 10/3/uL (0.0-0.16); EOSINOPHILS 2.2 %; EOSINOPHILS ABSOLUTE 0.24 10/3/uL (0.0-0.53); HEMATOCRIT 51.5 % (40.0-51.0); HEMOGLOBIN 17.4 g/dL (13.6-17.8); IMMATURE GRANULOCYTES 0.3 %; IMMATURE GRANULOCYTES ABSOLUTE 0.03 10/3/uL (0.0-0.11); LYMPHOCYTES 20.2 %; LYMPHOCYTES ABSOLUTE 2.18 10/3/uL (0.67-4.30); MEAN CORPUS HGB CONC 33.8 g/dL (32.0-36.0); MEAN CORPUSCULAR HEMOGLOB 29.6 pg (26.0-34.0); MEAN CORPUSCULAR VOLUME 87.6 fL (80-100); MEAN PLATELET VOLUME 10.5 fL (9.2-13.0); MONOCYTES 6.5 %; NEUTROPHILS 70.6 %; NEUTROPHILS ABSOLUTE 7.64 10/3/uL (2.02-8.40); PLATELET COUNT 179 10/3/uL (150-400); RBC DISTRIBUTION WIDTH 12.8 % (12.0-16.0); RED CELL COUNT 5.88 10/6/uL (4.7-6.1); WHITE BLOOD CELLS 10.8 10/3/uL (4.5-10.5)
[2017-03-12 04:52] LABS: MANUAL DIFF NO %
[2017-03-12 04:58] LABS: BUN (BLOOD UREA NITROGEN) 6 MG/DL (6-23); CALCIUM, SERUM 9.2 MG/DL (8.5-10.4); CHLORIDE, SERUM 98 MMOL/L (96-112); CO2 (CARBON DIOXIDE) 34 MMOL/L (24-34); CREATININE 0.87 MG/DL (0.70-1.30); GFR AFRICAN AMERICAN 106 ML/MIN (>=60); GFR NON AFRICAN AMERICAN 92 ML/MIN (>=60); GLUCOSE, SERUM 153 MG/DL (60-99); POTASSIUM, SERUM 3.6 MMOL/L (3.5-5.3); SODIUM, SERUM 138 MMOL/L (135-148)
[2017-03-12 05:45] LABS: PROCALCITONIN <0.05 ng/mL (<0.5)
[2017-03-13 05:22] LABS: BASOPHILS 0.2 %; BASOPHILS ABSOLUTE 0.02 10/3/uL (0.0-0.16); EOSINOPHILS 2.6 %; EOSINOPHILS ABSOLUTE 0.21 10/3/uL (0.0-0.53); IMMATURE GRANULOCYTES 0.2 %; IMMATURE GRANULOCYTES ABSOLUTE 0.02 10/3/uL (0.0-0.11); LYMPHOCYTES 17.6 %; LYMPHOCYTES ABSOLUTE 1.44 10/3/uL (0.67-4.30); MEAN CORPUSCULAR HEMOGLOB 29.6 pg (26.0-34.0); MEAN CORPUSCULAR VOLUME 89.5 fL (80-100); MEAN PLATELET VOLUME 10.4 fL (9.2-13.0); MONOCYTES ABSOLUTE 0.82 10/3/uL (0.21-1.20); NEUTROPHILS 69.4 %; NEUTROPHILS ABSOLUTE 5.69 10/3/uL (2.02-8.40); PLATELET COUNT 163 10/3/uL (150-400); RBC DISTRIBUTION WIDTH 13.1 % (12.0-16.0); RED CELL COUNT 5.07 10/6/uL (4.7-6.1); WHITE BLOOD CELLS 8.2 10/3/uL (4.5-10.5)
[2017-03-13 05:24] LABS: HEMATOCRIT 45.4 % (40.0-51.0); MANUAL DIFF NO %
[2017-03-13 05:37] LABS: BUN (BLOOD UREA NITROGEN) 5 MG/DL (6-23); CALCIUM, SERUM 8.3 MG/DL (8.5-10.4); CHLORIDE, SERUM 100 MMOL/L (96-112); CO2 (CARBON DIOXIDE) 31 MMOL/L (24-34); CREATININE 0.86 MG/DL (0.70-1.30); GFR AFRICAN AMERICAN 107 ML/MIN (>=60); GFR NON AFRICAN AMERICAN 92 ML/MIN (>=60); GLUCOSE, SERUM 138 MG/DL (60-99); POTASSIUM, SERUM 4.2 MMOL/L (3.5-5.3); SODIUM, SERUM 136 MMOL/L (135-148)
[2017-03-14 03:54] LABS: BASOPHILS 0.1 %; BASOPHILS ABSOLUTE 0.01 10/3/uL (0.0-0.16); EOSINOPHILS 0 %; HEMATOCRIT 43.2 % (40.0-51.0); HEMOGLOBIN 14.4 g/dL (13.6-17.8); IMMATURE GRANULOCYTES 0.4 %; IMMATURE GRANULOCYTES ABSOLUTE 0.06 10/3/uL (0.0-0.11); LYMPHOCYTES 5.3 %; LYMPHOCYTES ABSOLUTE 0.91 10/3/uL (0.67-4.30); MEAN CORPUS HGB CONC 33.3 g/dL (32.0-36.0); MEAN CORPUSCULAR HEMOGLOB 29.8 pg (26.0-34.0); MEAN CORPUSCULAR VOLUME 89.3 fL (80-100); MEAN PLATELET VOLUME 10.3 fL (9.2-13.0); MONOCYTES ABSOLUTE 0.68 10/3/uL (0.21-1.20); NEUTROPHILS 90.2 %; NEUTROPHILS ABSOLUTE 15.42 10/3/uL (2.02-8.40); PLATELET COUNT 160 10/3/uL (150-400); RBC DISTRIBUTION WIDTH 13.1 % (12.0-16.0); RED CELL COUNT 4.84 10/6/uL (4.7-6.1)
[2017-03-14 03:58] LABS: MANUAL DIFF NO %; WHITE BLOOD CELLS 17.1 10/3/uL (4.5-10.5)
[2017-03-14 04:07] LABS: BUN (BLOOD UREA NITROGEN) 4 MG/DL (6-23); CHLORIDE, SERUM 101 MMOL/L (96-112); CREATININE 0.92 MG/DL (0.70-1.30); GFR AFRICAN AMERICAN 102 ML/MIN (>=60); GFR NON AFRICAN AMERICAN 88 ML/MIN (>=60); POTASSIUM, SERUM 4.2 MMOL/L (3.5-5.3); SODIUM, SERUM 136 MMOL/L (135-148)
[2017-03-14 04:11] LABS: CALCIUM, SERUM 7.1 MG/DL (8.5-10.4); CO2 (CARBON DIOXIDE) 26 MMOL/L (24-34); GLUCOSE, SERUM 194 MG/DL (60-99)
[2017-03-14 04:35] LABS: ASCORBIC ACID (UR NOT ORDER) NEG (NEG); BILIRUBIN, URINE NEGATIVE (NEG); KETONE, URINE NEGATIVE (NEG); LEUKOCYTE ESTERASE(NOT OR TRACE (NEG); WBC (NOT ORDERED) (RFLEX) 3 (0-5)
[2017-03-15 03:27] LABS: BASOPHILS 0.1 %; BASOPHILS ABSOLUTE 0.01 10/3/uL (0.0-0.16); EOSINOPHILS 0.1 %; EOSINOPHILS ABSOLUTE 0.02 10/3/uL (0.0-0.53); HEMATOCRIT 40.1 % (40.0-51.0); IMMATURE GRANULOCYTES 0.6 %; IMMATURE GRANULOCYTES ABSOLUTE 0.09 10/3/uL (0.0-0.11); LYMPHOCYTES 4.1 %; LYMPHOCYTES ABSOLUTE 0.67 10/3/uL (0.67-4.30); MEAN CORPUS HGB CONC 32.4 g/dL (32.0-36.0); MEAN CORPUSCULAR HEMOGLOB 29.7 pg (26.0-34.0); MEAN CORPUSCULAR VOLUME 91.8 fL (80-100); MEAN PLATELET VOLUME 10.5 fL (9.2-13.0); MONOCYTES 7.5 %; MONOCYTES ABSOLUTE 1.21 10/3/uL (0.21-1.20); NEUTROPHILS 87.6 %; NEUTROPHILS ABSOLUTE 14.18 10/3/uL (2.02-8.40); PLATELET COUNT 144 10/3/uL (150-400); RBC DISTRIBUTION WIDTH 13.6 % (12.0-16.0); RED CELL COUNT 4.37 10/6/uL (4.7-6.1); WHITE BLOOD CELLS 16.2 10/3/uL (4.5-10.5)
[2017-03-15 03:28] LABS: MANUAL DIFF NO %
[2017-03-15 03:52] LABS: BUN (BLOOD UREA NITROGEN) 7 MG/DL (6-23); CALCIUM, SERUM 7.1 MG/DL (8.5-10.4); CHLORIDE, SERUM 109 MMOL/L (96-112); CO2 (CARBON DIOXIDE) 30 MMOL/L (24-34); CREATININE 0.88 MG/DL (0.70-1.30); GFR AFRICAN AMERICAN 106 ML/MIN (>=60); GFR NON AFRICAN AMERICAN 91 ML/MIN (>=60); GLUCOSE, SERUM 213 MG/DL (60-99); POTASSIUM, SERUM 4.1 MMOL/L (3.5-5.3); SGOT(AST) 10 U/L (5-40); SGPT(ALT) 15 U/L (5-65); TOTAL BILIRUBIN 0.8 MG/DL (0-1.2)
[2017-03-15 03:59] LABS: A/G RATIO 0.8 (0.7-1.9); ALBUMIN 2.3 G/DL (3.5-5.0); ALKALINE PHOSPHATASE 38 U/L (45-117); GLOBULIN 2.8 G/DL (2.5-4.1); PHOSPHORUS, SERUM 1.1 MG/DL (2.5-4.5); SODIUM, SERUM 143 MMOL/L (135-148); TOTAL PROTEIN 5.1 G/DL (6.0-8.5)
[2017-03-15 04:22] LABS: PROCALCITONIN 1.01 ng/mL (<0.5)
== END 2017-03-15 11:02 | disposition expired | DRG 329 ==
LOC: ER 04:53 → 5SO 05:50 → SDC/OF 03-13 15:27 → MIC 03-13 16:41
PROVIDERS: Internal Medicine Pulmonary Disease; Nurse Practitioner; Surgery
DX: K55.031 Focal (segmental) acute (reversible) ischemia of large intestine (principal); J95.821 Acute postprocedural respiratory failure; I21.3 ST elevation (STEMI) myocardial infarction of unspecified site; I49.01 Ventricular fibrillation; I46.9 Cardiac arrest, cause unspecified; J90 Pleural effusion, not elsewhere classified; K56.5 Intestinal adhesions [bands] with obstruction (postinfection); K91.89 Other postprocedural complications and disorders of digestive system; E66.9 Obesity, unspecified; I10 Essential (primary) hypertension; J44.9 Chronic obstructive pulmonary disease, unspecified; I25.10 Atherosclerotic heart disease of native coronary artery without angina pectoris; E11.9 Type 2 diabetes mellitus without complications; K21.9 Gastro-esophageal reflux disease without esophagitis; Z88.0 Allergy status to penicillin; Z87.891 Personal history of nicotine dependence; Z88.8 Allergy status to other drugs, medicaments and biological substances; Z79.02 Long term (current) use of antithrombotics/antiplatelets; Z79.899 Other long term (current) drug therapy; Z86.73 Personal history of transient ischemic attack (TIA), and cerebral infarction without residual deficits
CPT/HCPCS: 31720; 36415; 36600; 71010; 74000; 74020; 74176; 74270; 76000; 80048; 80053; 81001; 82150; 82330; 82803; 82947; 82962; 83036; 83605; 83690; 83735; 84100; 84132; 84145; 84295; 85014; 85025; 86850; 86900; 86901; 86920; 87015; 87040; 87070; 87075; 87077; 87102; 87116; 87186; 87205; 87641; 88307; 92950; 93005; 94002; 94003; 94660; 96374; 96375; 96376; 99285; A9270-GY; C9113; J0282; J0330; J0360; J0690; J1170; J1652; J1956; J2250; J2370; J2405; J2550; J3010; J3370; J3475; P9045